=== PATIENT | female | born 1960 | race Caucasian/White ===

== ENCOUNTER → 2016-11-03 | Day surgery (SDC) | payer BC ==
[~2016-11-03] MED LIST: ACETAMINOPHEN/HYDROcodone 325 MG/5 MG TAB ONE; ALBU8I INH; BACITRACIN IM FOR SOLN 50,000 UNIT VIAL ONE; BUPIVACAINE LIPOSOME PF 1.3% 20 ML VIAL ONE; BUPIVACAINE/EPINEPHRINE 0.25% 50 ML VIAL ONE; GENTAMICIN SULFATE 80 MG/2 ML VIAL ONE; ISOSULFAN BLUE 50 MG/5 ML VIAL SQ ONE; LACTATED RINGER'S 1000 ML INJ 1,000 ML ONE; MIDAZOLAM HCL 2 MG/2 ML VIAL ONE; MORPHINE SULFATE 4 MG/ML INJ ONE; ONDANSETRON HCL 4 MG/2 ML VIAL IV PUSH ONE; PROPOFOL 200 MG/20 ML AMP IV ONE; SODIUM CHLOR 0.9% 250 ML BAG IV ONE; SODIUM CHLORIDE 0.9% 20 ML VIAL ONE; VANCOMYCIN HCL 1000 MG VIAL ONE; ceFAZolin 2 GM PREMIX 50 ML ONE; ceFAZolin INJ 1,000 MG VIAL ONE
--- NOTE | 2016-11-03 13:57 | HHI.PR ---
Immediate Post Op Note Procedure Date: Nov 03, 2016 Pre Op Diagnosis: acquired absence of right breast Post Op Diagnosis: same Surgeon: Luh Luther Physician Chief Of Pathology(s): none Procedure: Right breast tissue surface water technician placement Complications: none Estimated blood loss: minimal Drains: MARCO A Patient to: PACU Patient Condition: Good Implant/Devices: SEE IMPLANT LOG (if applicable) Date/Time of Procedure: SEE SURGICAL CARE RECORD Luh Luther MD Nov 03, 2016 13:57
--- NOTE | 2016-11-03 14:35 | TN ---
cc: VALDEMAR LUTHER MD DATE OF SURGERY: 11/03/2016 PREOPERATIVE DIAGNOSIS Acquired absence of the right breast. POSTOPERATIVE DIAGNOSIS Acquired absence of the right breast. PROCEDURE PERFORMED Placement of right breast tissue evaluation analyst with AlloDerm and recreation of the inframammary fold. ATTENDING SURGEON [place] Luther PHYSICAL SECURITY MANAGER No assistants. ANESTHESIA General; staff Anesthesia. OPERATIVE INDICATIONS Ms. Jung Beltran is a 56-year-old female diagnosed with aggressive invasive right-sided breast cancer. She underwent neoadjuvant therapy preoperatively and plans were made for mastectomy and breast reconstruction. I discussed the risks and benefits of this procedure with the patient preoperatively. It was known that she was likely going to need radiation and therefore we decided to preserve the skin pocket with a breast tissue evaluation analyst. I discussed all the risks and benefits of the procedure with the patient and she was willing to proceed. OPERATIVE NOTE After informed consent was obtained, the patient was taken back to the operating room, placed in the supine position and administered general anesthesia. A timeout was held to identify the patient and the procedure to be performed. Antibiotics were given prior to operative start in the form of intravenous Kefzol. After Dr. Stone completed his portion of the case including the mastectomy and evaluation of the lymph nodes, I then re-prepped and draped the patient's chest wall in standard sterile fashion. I thoroughly irrigated out the pocket and obtained hemostasis. At this point I obtained AlloDerm regenerative tissue matrix that had been soaked in normal saline. This was a 6 x 16 piece, lot number [id number]. The AlloDerm was secured to the inframammary fold and to the medial aspect of the pectoralis muscle after I completely elevated the pectoralis muscle. I secured the AlloDerm in place with interrupted 2-0 PDS sutures. The potential space underneath the pectoralis muscle was completely irrigated and hemostasis was obtained. Once I was satisfied with the recreation of the inframammary fold with the AlloDerm I then opened the [place] high profile tissue 475 cc evaluation analyst, reference number [id number], lot number [id number]. The tissue evaluation analyst was opened and immediately irrigated with antibiotic-infused saline including Kefzol, gentamicin and bacitracin. 50 cc of saline were placed into the tissue evaluation analyst after all the air was removed. The tissue evaluation analyst using my standard sterile technique was inserted underneath the pectoralis muscle and above the new inframammary fold. I used a tab to suture the evaluation analyst into the proper position. I then placed two Mega-Dunn drains, one in the inframammary fold and one extending up into the axilla. The skin edges of the large incision were then approximated with interrupted and running Monocryl sutures. I then applied Prineo glue. The bulbs were placed on suction. Please note that all counts were correct at the end of the case, and I was present and scrubbed for the entire case. MD ESTEFANI Wick/EMORY /1:55 PM /2:14 PM
--- NOTE | 2016-11-03 15:01 | TN ---
cc: CATHLEEN GREEN M.D. DATE OF SURGERY: 11/03/2016 PREOPERATIVE DIAGNOSIS Inflammatory infiltrating right breast cancer, status post neoadjuvant chemotherapy. POSTOPERATIVE DIAGNOSIS Inflammatory infiltrating right breast cancer, status post neoadjuvant chemotherapy. PROCEDURE PERFORMED Right simple mastectomy with right sentinel node excision. SURGEON Cathleen Green BUSINESS PROCESS CONSULTANT Brigitte Newman, MS III ANESTHESIA General LMA. COMPLICATIONS None. INDICATION FOR PROCEDURE Ms. Beltran is a pleasant 56-year-old female who had a fungating necrotic bleeding tumor of her right breast. She was seen and evaluated by Dr. Louis Barlow who recommended neoadjuvant chemotherapy. Dr. Barlow sent her over and we placed an [id number]-[id number]. She had neoadjuvant chemotherapy which totally resolved her tumor. By physical exam she still had some distinct skin changes in the periareolar position where the tumor used to be, but the wound itself healed completely. She had a pre-chemotherapy PET scan that showed wide metastatic disease in the axillary, supraclavicular, cervical and internal mammary lis chains. Her post chemotherapy PET scan showed complete resolution. She was advised to undergo simple mastectomy with sentinel node sampling to ensure complete resolution of disease. The patient requested a reconstruction. She was referred to Dr. Luh Luther who agreed to proceed with tissue steel inspector reconstruction. DETAILS OF PROCEDURE The patient was identified, brought to the operating room and placed supine on the operating table. After adequate general anesthesia was achieved, the anterior chest and axilla were prepped and draped in standard surgical fashion. 10 cc of isosulfan blue was injected into the right breast in the periareolar position. 0.25% Marcaine was injected along the right chest wall. A tangential elliptical incision was used to excise all erythematous skin in the nipple-areolar complex. Subcutaneous tissue was dissected circumferentially. The margins achieved in the breast tissue were superiorly to the clavicle, medially to the sternum, inferiorly to the inframammary ridge and laterally to the anterior axillary line. The breast was then dissected up off the pectoralis major muscle using electrocautery Bovie. The breast was followed up in the axillary tail proper where it was transected. A short stitch was placed superior, a long stitch was placed lateral. Attention was now directed to the identification of any sentinel nodes. By direct visualization we did not see any blue dye in the axilla itself. Using the probe we could detect no activity in the axilla. The patient had preoperative imaging which showed no activity. By direct palpation I could not palpate any normal or abnormal axillary nodes. I therefore took a sampling of the fatty tissue in the axilla proper. The axillary vein as well as the long thoracic and thoracodorsal nerves were clearly seen, identified and kept out of the operative field. A general sampling of the fatty tissue was excised and sent as axillary tail. At this point again by direct visualization there was no blue dye. By direct palpation I could not palpate any adenopathy, and again using the probe we could detect no activity in the axilla itself. At this point the patient was left under the care of Dr. Luh Luther who was going to perform tissue steel inspector reconstruction. Please see her operative note for the details. MD VERONICA Mcgowan/EMORY /1:58 PM /2:52 PM
== END | disposition home or self-care (01) ==
LOC: ESDC 06:19
PROVIDERS: ATTEND Plastic Surgery
DX: C50.911 Malignant neoplasm of unspecified site of right female breast (principal)
CPT/HCPCS: 00402; 01610; 15777; 19303; 19357; 38525; 38792; 88309; C1789; C9290; J0690; J1580; J2250; J2270; J2405; J3010; J3370; J7050; J7120; Q4116; Q9968; 88307